=== PATIENT | male | born 1965 | race Caucasian/White ===

== ENCOUNTER → 2024-08-26 08:26 | Outpatient (REF) | payer BC, SELFPAY | LOC: HWRAD 08:26 | PROVIDERS: ATTENDING PHYSICIAN Internal Medicine Nephrology; FAMILY PHYSICIAN Physician Assistant Medical; REFERRING PHYSICIAN Family Medicine | DX: R10.84 Generalized abdominal pain (principal); N20.0 Calculus of kidney | CPT/HCPCS: 76700; 76770 ==